=== PATIENT | male | born 1960 | race Caucasian/White ===

== ENCOUNTER 2017-09-15 09:38 | Emergency (ER) | payer OTHER ==
[~2017-09-15] VITALS: Ht 182.9 cm; Wt 124.3 kg
[~2017-09-15 09:38] MED LIST: BISACODYL5 MG PO; CENTRUM SILVER1 EAC3 PO; DOCUSATE SODIU100 MG PO; FLEXERIL10 MG PO; HEPARIN SO5000 UNITS SC; MILK OF MAGNESI10 ML PO; NAPROSYN500 MG PO; NORCO 5/3251 TABLET PO; ONDANSETRON4 MG/2 ML IV; OXYCODONE HCL5 MG PO; PANTOPRAZOLE SO40 MG PO; SENNA PLUS TAB1 EACH PO; TYLENOL REGULA325 MG PO
[2017-09-15 10:08] LABS: BASOPHIL (%) 0.7 % (0-1); EOSINOPHIL (%) 1.1 % (0-5); EOSINOPHIL COUNT 0.1 K/uL (0-0.3); HEMATOCRIT 38.6 % (38.0-50.0); HEMOGLOBIN 13.2 G/DL (12.5-16.6); IMMATURE GRANULOCYTE (%) 0.2 % (0.0-0.7); LYMPHOCYTE (%) 22.3 % (15-42); LYMPHOCYTE COUNT 1.4 K/uL (1.0-2.8); MCH 30.8 PG (29.0-34.0); MCHC 34.2 G/DL (30.0-36.0); MCV 90.2 FL (86-99); MONOCYTE (%) 9.1 % (3-12); MONOCYTE COUNT 0.6 K/uL (0-0.8); NEUTROPHIL (%) 66.6 % (45-76); NEUTROPHIL COUNT 4.1 K/uL (1.8-6.4); PLATELET COUNT 228 K/uL (156-360); RBC DIS.WIDTH-CV 12.4 % (11.8-14.6); RBC DIS.WIDTH-SD 40.5 % (39-53); RED BLOOD COUNT 4.28 M/uL (4.00-5.50); WHITE BLOOD COUNT 6.1 K/uL (4.1-10.2)
[2017-09-15 10:31] LABS: CHLORIDE 107 mEq/L (99-109); POTASSIUM 4.1 mEq/L (3.7-5.4); SODIUM 140 mEq/L (136-147)
[2017-09-15 10:33] LABS: GLUCOSE 102 mg/dL (70-99)
[2017-09-15 10:37] LABS: GFR ESTIMATE (CALCULATED) > 59 mL/min/ (58.99-99999)
[2017-09-15 10:38] LABS: UREA NITROGEN (BUN) 12 mg/dL (9-23)
[2017-09-15] MEDS ORDERED: ANTIVERT25 MG PO (11:41)
[2017-09-15 12:01] VITALS: BP 120/88
== END 2017-09-15 12:11 | disposition home or self-care (01) ==
LOC: EME 09:38
PROVIDERS: Emergency Medicine
DX: R42 Dizziness and giddiness (principal); I10 Essential (primary) hypertension; F17.210 Nicotine dependence, cigarettes, uncomplicated; Z88.0 Allergy status to penicillin
CPT/HCPCS: 80048; 85025; 93005; 99281; 99285; J2405